=== PATIENT | male | born 1990 | race Caucasian/White ===

== ENCOUNTER 2017-11-14 18:18 | Emergency (ER) | payer BC, SELFPAY ==
[2017-11-14 18:18] VITALS: BP 160/93; PULSE 88; RESP 14; TEMP 36.8; O2SAT 98; BMI 32.3
[2017-11-14 18:51] VITALS: BP 155/70; PULSE 80; RESP 14; O2SAT 98
[2017-11-14 19:12] LABS: Absolute Lymphocyte Count 2.35 X10^3/ul (0.83-4.51); Absolute Neutrophil Count 4.4 X10^3/uL (2.0-7.7); Basophil# 0.01 X10^3/uL; Basophil% 0.1 % (0-1); Eosinophil# 0.08 X10^3/uL; Eosinophils% 1.1 % (0-5); Hematocrit 44.3 % (40-54); Hemoglobin 15.3 g/dl (13.0-16.5); Lymphocyte # 2.35 X10^3/ul (4.0); Lymphocyte % 31.5 % (19-41); Mean Corp Hgb Conc 34.5 g/gl (32-36); Mean Corpuscular Hgb 29.9 pg (27.0-32.0); Mean Corpuscular Volume 86.5 fL (80-94); Mean Platelet Vol. 8.7 fl (6.2-12.0); Monocyte# 0.64 X10^3/uL; Monocyte% 8.6 % (0-10); Neutrophil # 4.36 X10^3/uL (2.7-7.7); Neutrophil % 58.4 % (47-70); POSITIVE COUNT NO; POSITIVE DIFFERENTIAL NO; POSITIVE MORPHOLOGY NO; Platelet Count 293 K/mm3 (150-450); RBC Distribution Width CV 12.3 % (11.6-14.6); RBC Distribution Width SD 39.1 fl (35.1-43.9); Red Blood Count 5.12 M/mm3 (4.6-6.2); White Blood Count 7.5 K/mm3 (4.4-11.0)
[2017-11-14 19:27] LABS: ALB/GLOB Ratio 1.1 RATIO (0.9-2.4); AST(SGOT) 73 U/L (15-37); Alanine Aminotransfer ALT/SGPT 121 U/L (16-61); Albumin, Serum 4.4 g/dL (3.2-5.0); Alkaline Phosphatase 70 U/L (45-117); Anion Gap 10 (5-15); BUN 13 mg/dL (7-18); BUN/Creat Ratio 11.6 RATIO (10-20); Calcium,Total 9.1 mg/dL (8.5-10.1); Chloride 103 mmol/L (98-107); Creatinine, Serum 1.12 mg/dL (0.70-1.30); EST Glomerular Filtration Rate 84 mL/min (>60); Est Glom Filt Rate - Afr Amer 101 mL/min (>60); Estimated Creatinine Clearance 90.19 ml/min; Globulin 4.1 g/dL (2.2-4.2); Glucose 96 mg/dL (74-106); Lipase 95 U/L (73-393); Protein, Total 8.5 g/dL (6.4-8.2); Sodium Level 138 mmol/L (136-145)
--- NOTE | 2017-11-14 19:45 | ED.DCSUM_ITS ---
- ER Visit Summary Date of Service: 11/14/17 Chief Complaint: Abdominal pain History of Present Illness: The patient is a 26 M who started with abdominal pain today. This started about an hour and a half ago. He states it started out as sharp but now it is dull. In the epigastric and right upper quadrant area. It does not radiate. He has nausea without vomiting. No diarrhea or constipation. No urinary symptoms. No fevers. He denies any abdominal surgeries in the past. He took nothing for it. Physical Examination: Vital signs reviewed. HEENT exam unremarkable. Heart is regular rate and rhythm without murmurs. Lungs are clear to auscultation. Abdomen is soft with tenderness in the right upper quadrant and epigastric area. Extremities reveal no edema. Skin exam normal. Neurologic exam normal. Test Results: Laboratory studies normal except for ALT of 121 and AST of 73 Emergency Department Course and Treatment: Patient was given a GI cocktail and feels much better. There was slight hemolysis on the labs so he does have a slight elevation of his liver enzymes. Bilirubin is normal. I do not feel that this represent gallbladder disease. I did a bedside ultrasound that shows no gallstones or gallbladder wall thickening. Patient will be given omeprazole to take at home daily. He will decrease his alcohol use and will follow up with his PCP for retesting of his liver enzymes Treatment Plan: [] Disposition: Discharge Impression: Gastritis This note was generated with [employer] dictation software. It may contain incorrect words, spelling, and punctuation that were not noted in review of the chart prior to signing ED Disposition - Plan for ED Patient: Chief Complaint: Abd Pain Referrals: Yoana Wahl MD [Primary Care Provider] -
--- NOTE | 2017-11-14 19:45 | ED.DEP ---
ED Disposition - Plan for ED Patient: Disposition: Home or Assisted Living Chief Complaint: Abd Pain Instructions: ED Abdominal Pain Unkn Cause Prescriptions: Omeprazole [Prilosec] 20 mg PO DAILY #30 cap Referrals: Yoana Wahl MD [Primary Care Provider] -
[2017-11-14 19:55] VITALS: BP 148/80; PULSE 75; RESP 14; O2SAT 98
== END 2017-11-14 20:05 | disposition home or self-care (01) ==
PROVIDERS: Emergency Provider Emergency Medicine; PCP Family Medicine
DX: K29.70 Gastritis, unspecified, without bleeding (principal); R79.89 Other specified abnormal findings of blood chemistry
CPT/HCPCS: 80053; 83690; 85025; 99285; A4216

== ENCOUNTER 2023-04-07 01:20 | Emergency (ER) | payer OTHER, SELFPAY ==
[2023-04-07 01:22] VITALS: BP 146/87; PULSE 75; RESP 12; TEMP 36.6; O2SAT 97; BMI 31.8
--- NOTE | 2023-04-07 01:42 | EX.ED.GENINJ ---
HPI History of Present Illness Chief Complaint: Cold Sx Informant: patient Narrative Narrative: Patient presents with multiple symptoms for the last 5 days. He states he started with kind of muscle aches. He then got fever. He says just a rare cough. He has had a little nasal congestion. He has decreased energy. Decreased appetite. He has developed some mild diarrhea. It is soft not watery. But no abdominal pain. He is able to eat and drink but his appetite is down. He states he is not really vomiting but has been getting more acid in his throat. That makes him a little bit nauseated. Evidently his significant other and children have all had similar symptoms. He is here because he had to leave work just for not feeling well. They would like to know what he has. [facility] Medical History Anxiety Depression Medical History no medical history Home Medications duloxetine 60 mg capsule,delayed release (Cymbalta) 60 mg PO DAILY 04/07/23 [History Last Taken Unknown] ondansetron 4 mg disintegrating tablet 4 mg PO Q8H PRN PRN Nausea #10 tabs 04/07/23 [Rx Last Taken Unknown] Allergy/AdvReac Type Severity Reaction Status Date / Time No Known Allergies Allergy Verified 04/07/23 01:21 Social History Smoking Status: Former smoker ROS ROS ED ROS Narrative A complete review of systems was performed and is negative except as documented in the history of present illness. Some specific details below. Constitutional: Recent fevers chills myalgias and malaise. EYE: Discharge or drainage. ENT: No difficulty swallowing. No swelling. No pain. He has had a lot of increased reflux symptoms. He has had nasal congestion and mild runny nose. No sore throat. CV: No chest pain palpitations or near syncope. Respiratory: Rare cough. Not short of breath. No sputum. GI: No abdominal pain. But he has had some diarrhea. Mild nausea. Reflux but no actual vomiting. : No frequency dysuria or hematuria. Musculoskeletal: No recent trauma. He does have some mild diffuse myalgias. Skin: No rash. Nondiaphoretic. Neuro: No weakness or numbness. Endocrine: No polyuria or polydipsia. EXAM Physical Exam Narrative Exam Narrative: CONSTITUTIONAL: Patient is nontoxic in appearance. The patient looks comfortable. Work of breathing looks normal. However, he is bundled up in multiple layers. He has swan of his sweatshirt up over his head to keep warm. But he is nontoxic. HEENT: No notable trauma. Mucous membranes are still moist. No sinus tenderness. No indication of pain with swallowing. Oral pharynx shows no exudate. No lymphadenopathy. EYES: No conjunctival injection. No proptosis. NECK:No JVD. No stridor. CARDIOVASCULAR: Regular rate. Regular rhythm. No notable murmur. No JVD. RESPIRATORY: No respiratory distress. Breathing is unlabored. No wheezes. No rhonchi. No rales. No pain with a deep breath. No chest wall tenderness. GASTROINTESTINAL: Not distended. Bowel sounds are normal. No tenderness. No guarding. No rebound. No palpable mass. No bruit is heard. Overall benign abdomen. GENITOURINARY: No tenderness over the bladder. No CVA tenderness. MUSCULOSKELETAL: Atraumatic. No peripheral edema. No tenderness or asymmetry. NEUROLOGICAL: Patient is alert and appropriate. No focal deficit noted. SKIN: No noted rashes. No diaphoresis. PSYCHIATRIC: Patient is calm. Mood is appropriate. Const Vital Signs: 04/07/23 01:22 04/07/23 01:25 Temperature 97.8 F Temperature Source Temporal Pulse Rate 75 Respiratory Rate 12 Respiratory Pattern Normal Blood Pressure 146/87 H Blood Pressure Mean 106 Pulse Ox 97 Oxygen Delivery Method Room Air MDM MDM MDM Narrative Medical decision making narrative: I explained to the patient that this is really a viral illness. He has multiple symptoms with overall normal vitals. His exam is overall unimpressive. I do not think blood work is going to give us any answers. Likewise, he has only a rare cough, not short of breath, not hypoxic and has a normal pulmonary exam and I do not think x-ray is needed. We discussed that we will send off viral studies. But even if negative he could still have 1 of these viruses as they are not perfect test. We can help his symptoms. I will give him some Tylenol here for the myalgias. He should take Tylenol or Motrin for aches as well as fevers. I can write for Zofran which will help a little bit with mild nausea that he has. Patient's influenza B is positive. This is consistent with his symptoms. He is beyond the point of using Tamiflu. I will write for some Zofran if he has some nausea issues. He can use Tylenol Motrin for fevers or aches. We will write him off work for a few more days. Discharge Plan Triage Chief Complaint: Cold Sx Other Complaint: Nausea/Vomiting/Diarrhea ED Provider: Jason Byrnes Dx/Rx/DC Orders Clinical Impression: Influenza B Instructions: The Flu (Influenza) Prescriptions: New ondansetron [ondansetron] 4 mg tablet,disintegrating 4 mg PO Q8H PRN PRN (Reason: Nausea) Qty: 10 0RF No Action duloxetine [Cymbalta] 60 mg capsule,delayed release(DR/EC) 60 mg PO DAILY Stand Alone Forms: ED Work / School Excuse Primary Care Provider: Yoana Wahl Referrals: Yoana Wahl MD [Primary Care Provider] - 3-5 Days if not improving Disposition Disposition: Home, Self Care
--- OUTSIDE RECORDS SUMMARY | 2023-04-07 01:51 | XMS RPT_ITS | CCD ---
Author Name Unknown Address [address] [place] [address] Organization [facility] Results Test Name Value Interpretation Reference Range Facil ity Encounters Encounter Date Encounter Type Care Provider Facility Start: 02-05-2018 End: 02-06-2018 Patient encounter procedure [facility] Start: 02-17-2017 End: 02-17-2017 Patient encounter procedure [facility] Summary Purpose Family History No Family History Records Found Advance Directives No Advanced Directives Records Found Additional Source Comments (unrecognized sect ion and content) No Status Records Found INFORMATION SOURCE (unrecogn ized section and content) FOR RECORDS PERTAINING TO PATIENTS WHO ARE OR HAVE BEEN ENROLLED IN A CHEMICAL DEPENDENCY/SUBSTANCEABUSE PROGRAM, SOME INFORMATION MAY BE OMITTED. This clinical summary was aggregated from multiple sources. Caution should be exercised in using it in the provision of clinical care. This summary normalizes information from multiple sources, and as a consequence, information in this document may materially change the coding, format and clinical context of patient data. In addition, data may be omitted in some cases. CLINICAL DECISIONS SHOULD BE BASED ON THE PRIMARY CLINICAL RECORDS. [facility] [employer] provides no warranty or guarantee of the accuracy or completeness of information in this document.
[2023-04-07] MEDS: Acetaminophen 500 MG Tablet 1000 MG PO (02:00)
[2023-04-07] MEDS: Ondansetron ODT 4 MG Tablet PO (02:00)
[2023-04-07 02:52] VITALS: BP 125/78; PULSE 88; RESP 16; TEMP 36.6; O2SAT 98
== END 2023-04-07 02:52 | disposition home or self-care (01) ==
LOC: ED 01:49
PROVIDERS: Emergency Provider Emergency Medicine; PCP Family Medicine; Visit Provider Emergency Medicine
DX: J10.1 Influenza due to other identified influenza virus with other respiratory manifestations (principal); Z87.891 Personal history of nicotine dependence
CPT/HCPCS: 87631; 99284

== ENCOUNTER 2024-04-21 13:35 | Emergency (ER) | payer OTHER, BC, SELFPAY ==
[2024-04-21 13:36] VITALS: BP 138/96; PULSE 83; RESP 15; TEMP 36.2; O2SAT 99; BMI 31.6
--- NOTE | 2024-04-21 15:00 | EX.ED.VIS.EY ---
HPI History of Present Illness Chief Complaint: Occup Expose Narrative Narrative: Chief complaint and HPI: Occupational exposure. 33-year-old male with no significant past medical history presents for evaluation after and occupational exposure. Patient states that he was working in an open building when he was sent home at 10:30 AM after a natural gas leak at work. Patient states that at the time of the event he had a headache, lightheadedness, nausea. All symptoms have resolved. States that he was told that he needed to be evaluated after the incident. Denies any headache, confusion, vision changes, lightheadedness, chest pain, shortness of breath, cough, nausea, vomiting currently. Review of systems: See HPI Medications: As listed on the chart Allergies: As listed on the chart PFSH: Per chart Vital signs: As listed on the chart. Reviewed. Physical exam: Gen: A&O x3, NAD Head: Normocephalic, atraumatic Eyes: No sclera icterus, conjunctiva clear ENT: Moist mucous membranes Neck: Trachea midline CV: RRR, no murmurs Resp: Lungs CTA BL, no w/r/c Musc: Moves all extremities Skin: Warm Neuro: Alert, oriented, grossly intact, sensation intact Psych: Cooperative, appropriate mood and affect [facility] Medical History Anxiety Depression Medical History no medical history Home Medications ?Medication ?Instructions ?Recorded ?Last Taken ?Type duloxetine 60 mg capsule,delayed 60 mg PO DAILY 04/07/23 Unknown History release (Cymbalta) Allergy/AdvReac Type Severity Reaction Status Date / Time No Known Allergies Allergy Verified 04/21/24 13:39 Social History (Updated 04/21/24 @ 14:58 by Elissa Mas) household members: family Smoking Status: Former smoker EXAM Physical Exam Const Vital Signs: 04/21/24 13:36 04/21/24 14:35 Temperature 97.2 F L Temperature Source Temporal Pulse Rate 83 Respiratory Rate 15 Respiratory Effort Normal Non-Labored Respiratory Pattern Normal Blood Pressure 138/96 H Blood Pressure Mean 110 Pulse Ox 99 Oxygen Delivery Method Room Air MDM MDM MDM Narrative Medical decision making narrative: 33-year-old male with no significant past medical history presents for evaluation after and occupational exposure. He was exposed to a natural gas leak. Inhalation exposure. Originally had nausea, lightheadedness, headache but these have all since resolved. Currently asymptomatic. Not hypoxic. Physical exam unremarkable. I do not think any laboratory workup or imaging is needed. Patient stable to discharge home. Follow-up with Worker's Compensation. Return back to the ED if symptoms change or worsen. He confirmed understanding of plan. Impression: 1. Occupational exposure 2. In elation accepted Discharge Plan Triage Chief Complaint: Occup Expose ED Provider: Hugh Aranda Dx/Rx/DC Orders Clinical Impression: Occupational exposure in workplace Instructions: ED Chemical Inhalation Prescriptions: No Action duloxetine [Cymbalta] 60 mg capsule,delayed release(DR/EC) 60 mg PO DAILY Primary Care Provider: Yoana Wahl Referrals: Yoana Wahl MD [Primary Care Provider] - Activity Restrictions/Additional Instructions: Follow-up with Worker's Compensation. Return back to the ED if symptoms change or worsen. Print Language: [place] Island[place] Disposition Disposition: Home, Self Care
== END 2024-04-21 15:02 | disposition home or self-care (01) ==
LOC: ED 14:57
PROVIDERS: Emergency Provider Surgery; PCP Family Medicine; Visit Provider Surgery
DX: Z57.8 Occupational exposure to other risk factors (principal); Z87.891 Personal history of nicotine dependence
CPT/HCPCS: 99282